=== PATIENT | female | born 1985 | race Caucasian/White ===

== ENCOUNTER 2017-01-04 10:54 | Emergency (ER) | payer OTHER ==
[2017-01-04 11:15] VITALS: BP 123/66
== END 2017-01-04 13:15 | disposition home or self-care (01) ==
LOC: ED 10:54
DX: M54.2 Cervicalgia (principal); M54.6 Pain in thoracic spine; V43.63XA Car passenger injured in collision with pick-up truck in traffic accident, initial encounter; Y93.89 Activity, other specified; Y99.8 Other external cause status; Y92.411 Interstate highway as the place of occurrence of the external cause